=== PATIENT | female | born 1985 | race Caucasian/White ===

== ENCOUNTER 2019-01-13 05:45 | Inpatient (IN) | payer OTHER ==
[2019-01-13] MEDS ORDERED: ONDANSETRON 4 MG INJ IV (08:00)
[2019-01-13] MEDS ORDERED: ACETAMINOPHEN 325 MG TAB PO (08:00)
[2019-01-13] MEDS ORDERED: NACL 0.9% 3 ML SYG IV (08:00)
[2019-01-13] MEDS ORDERED: ALBUTEROL/IPRATROPIUM (NEB) 3 ML AMP HHN (08:00)
[2019-01-13 08:35] LABS: ADD MAN DIFF? NO
[2019-01-13 08:47] LABS: BASOPHILS % 0.3 % (0.0-2.0); EOSINOPHILS # 0.1 10^3/ul (0.0-0.5); EOSINOPHILS % 1.8 % (0.0-7.0); HEMATOCRIT 38.1 % (37.0-47.0); HEMOGLOBIN 12.8 g/dl (12.0-16.0); LYMPHOCYTES # 1.9 10^3/ul (0.8-2.9); LYMPHOCYTES % 47.3 % (15.0-51.0); MEAN CORPUSCULAR HEMOGLOBIN 29.8 pg (29.0-33.0); MEAN CORPUSCULAR HGB CONC 33.6 g/dl (32.0-37.0); MEAN CORPUSCULAR VOLUME 88.8 fl (82.0-101.0); MEAN PLATELET VOLUME 10.6 fl (7.4-10.4); MONOCYTE # 0.5 10^3/ul (0.3-0.9); MONOCYTES % 11.5 % (0.0-11.0); NEUTROPHIL # 1.5 10^3/ul (1.6-7.5); NEUTROPHILS % 39.1 % (39.0-77.0); PLATELET COUNT 217 10^3/UL (140-415); RED BLOOD COUNT 4.29 10^6/ul (4.20-5.40); RED CELL DISTRIBUTION WIDTH 13.5 % (11.5-14.5)
[2019-01-13 08:47] LABS: WHITE BLOOD COUNT 3.9 10^3/ul (4.8-10.8)
[2019-01-13 09:04] LABS: CREATINE KINASE 71 IU/L (23-200)
[2019-01-13 09:05] LABS: ALANINE AMINOTRANSFERASE 17 IU/L (13-69); ALBUMIN 3.9 g/dl (3.3-4.9); ALBUMIN/GLOBULIN RATIO 1.18; ALKALINE PHOSPHATASE 51 IU/L (42-121); ANION GAP 9 (5-13); ASPARTATE AMINO TRANSFERASE 17 IU/L (15-46); BILIRUBIN,INDIRECT 0.3 mg/dl (0-1.1); BILIRUBIN,TOTAL 0.3 mg/dl (0.2-1.3); BLOOD UREA NITROGEN 10 mg/dl (7-20); CALCIUM 9.1 mg/dl (8.4-10.2); CARBON DIOXIDE 24 mmol/L (21-31); CHLORIDE 108 mmol/L (97-110); CHOL/HDL RATIO 4.5 RATIO; CHOLESTEROL 156 mg/dl (100-200); CREATININE 0.76 mg/dl (0.44-1.00); Estimated GFR > 60 mL/min (>60); GLUCOSE 99 mg/dl (70-220); HDL CHOLESTEROL 34 mg/dl (34-82); LDL CHOLESTEROL,CALCULATED 110 mg/dl; MAGNESIUM 2.1 mg/dl (1.7-2.5); SODIUM 141 mmol/L (135-144); TOTAL PROTEIN 7.2 g/dl (6.1-8.1); TRIGLYCERIDES 59 mg/dl (0-149)
[2019-01-13 09:14] LABS: CK INDEX 0.6; CK-MB 0.43 ng/ml (0.0-2.4); TROPONIN-I < 0.012 ng/ml (0.000-0.120)
[2019-01-13] MEDS: HEPARIN 5,000 UNIT/1 ML VIAL SC (09:40)
[2019-01-13] MEDS ORDERED: NITROGLYCERIN (SL) 0.4 MG TAB SL (11:00)
[2019-01-13] MEDS ORDERED: morphine 2 MG INJ IV (11:00)
[2019-01-13] MEDS ORDERED: LORAZEPAM 0.5 MG TAB PO (11:00)
[2019-01-13] MEDS: ASPIRIN 81 MG TAB PO (11:19)
[2019-01-13] MEDS: SOD CHLORIDE 0.9% 500 ML IV (11:19)
[2019-01-13 17:05] LABS: CREATINE KINASE 62 IU/L (23-200)
[2019-01-13 17:17] LABS: CK INDEX 0.5; CK-MB 0.31 ng/ml (0.0-2.4); TROPONIN-I < 0.012 ng/ml (0.000-0.120)
[2019-01-14 07:08] LABS: ADD MAN DIFF? NO
[2019-01-14 07:10] LABS: WHITE BLOOD COUNT 3.7 10^3/ul (4.8-10.8)
[2019-01-14 07:10] LABS: BASOPHILS % 0.3 % (0.0-2.0); EOSINOPHILS # 0.1 10^3/ul (0.0-0.5); EOSINOPHILS % 1.6 % (0.0-7.0); HEMATOCRIT 39.6 % (37.0-47.0); HEMOGLOBIN 13.1 g/dl (12.0-16.0); LYMPHOCYTES # 2.1 10^3/ul (0.8-2.9); LYMPHOCYTES % 57.7 % (15.0-51.0); MEAN CORPUSCULAR HEMOGLOBIN 29.5 pg (29.0-33.0); MEAN CORPUSCULAR HGB CONC 33.1 g/dl (32.0-37.0); MEAN CORPUSCULAR VOLUME 89.2 fl (82.0-101.0); MEAN PLATELET VOLUME 10.3 fl (7.4-10.4); MONOCYTE # 0.5 10^3/ul (0.3-0.9); MONOCYTES % 12.4 % (0.0-11.0); PLATELET COUNT 199 10^3/UL (140-415); RED BLOOD COUNT 4.44 10^6/ul (4.20-5.40); RED CELL DISTRIBUTION WIDTH 13.3 % (11.5-14.5)
[2019-01-14 07:32] LABS: ANION GAP 7 (5-13); BLOOD UREA NITROGEN 14 mg/dl (7-20); CALCIUM 9.1 mg/dl (8.4-10.2); CARBON DIOXIDE 26 mmol/L (21-31); CHLORIDE 108 mmol/L (97-110); CREATININE 0.86 mg/dl (0.44-1.00); Estimated GFR > 60 mL/min (>60); GLUCOSE 96 mg/dl (70-220); MAGNESIUM 2.1 mg/dl (1.7-2.5); PHOSPHORUS 4.2 mg/dl (2.5-4.9); SODIUM 141 mmol/L (135-144)
[2019-01-14] MEDS: ASPIRIN 81 MG TAB PO (08:13)
[2019-01-14] MEDS ORDERED: hydrOXYzine HCL 25 MG TAB PO (10:30)
== END 2019-01-14 13:25 | disposition home or self-care (01) | DRG 880 ==
LOC: TEL 05:45
PROVIDERS: Internal Medicine
DX: F41.9 Anxiety disorder, unspecified (principal); Z63.4 Disappearance and death of family member; E55.9 Vitamin D deficiency, unspecified
CPT/HCPCS: 70551; 80048; 80053; 80061; 82550; 82553; 82607; 82652; 83036; 83735; 84100; 84443; 84484; 85025; 93306; 97161